=== PATIENT | male | born 1955 | race Caucasian/White ===

== ENCOUNTER 2019-01-13 21:56 | Emergency (ER) | payer MEDICAID, OTHER ==
[~2019-01-13] VITALS: Ht 170.2 cm; Wt 102.1 kg
[2019-01-13 22:12] VITALS: BP 130/70
--- NOTE | 2019-01-13 22:16 | NUR ---
PT AMBULATED TO BED 4, REPORT TO JUSTINA ALBARADO
--- NOTE | 2019-01-13 22:25 | NUR ---
PT TO ED WITH C/O LOWER BACK PAIN. PT DENIES INJURY OR TRAUMA. REPORTING 10/10 PAIN RADIATING DOWN TO BILATERAL LEGS. PT PLACED INTO BED, PENDING MD MORAES.
[2019-01-13] MEDS ORDERED: KETOROLAC 60 MG/2 ML VIAL IM ONE (22:55)
[2019-01-13 23:30] VITALS: BP 124/61
--- NOTE | 2019-01-13 23:30 | NUR ---
Patient discharged with v/s stable. Written and verbal after care instructions given and explained. Patient alert, oriented and verbalized understanding of instructions. Ambulatory with steady gait. All questions addressed prior to discharge. ID band removed. Patient advised to follow up with PMD. Rx of ROBAXIN, MOTRIN given. Patient educated on indication of medication including possible reaction and side effects. Opportunity to ask questions provided and answered.
== END 2019-01-13 23:30 | disposition home or self-care (01) ==
LOC: MED 21:56
DX: M54.42 Lumbago with sciatica, left side (principal); M54.41 Lumbago with sciatica, right side; J45.909 Unspecified asthma, uncomplicated; I10 Essential (primary) hypertension
CPT/HCPCS: 72100; 96372; 99283; J1885

== ENCOUNTER 2019-07-24 21:32 | Emergency (ER) | payer OTHER ==
[~2019-07-24] VITALS: Ht 170.2 cm; Wt 108.9 kg
[2019-07-24 21:35] VITALS: BP 133/68
--- NOTE | 2019-07-24 21:38 | NUR ---
TO LOBBY A/W BED AMBULATORY
--- NOTE | 2019-07-24 22:31 | NUR ---
PT TO ER BED 1
[2019-07-24 22:46] VITALS: BP 133/68
--- NOTE | 2019-07-24 22:46 | NUR ---
64 Y/O MALE PRESENTS TO ED, C/O ACHING LOWER BACK AND LEFT ARM PAIN 03/23. PT STATES PAIN STARTED 2 WEEKS AGO STATES, "I MIGHT HAVE SLEPT WRONG." PT DENIES ANY TINGLING SENSATION ON EXTREMITIES. PT DENIES ANY LOWER EXTREMITY PAIN. PT ABLE TO AMBULATE WITH SLOW STEADY GAIT. LIMITED ROM ON L ARM. BILAT STRONG [employer] STRENGTH. STRONG BILAT RADIAL PULSES. PT VSS. ERMD AWARE. WILL CONTINUE TO MONITOR.
--- NOTE | 2019-07-25 00:38 | NUR ---
PT LEFT WITHOUT BEING SEEN BY DOCTOR. ERMD AWARE.
== END 2019-07-25 00:38 | disposition left against medical advice (07) ==
LOC: MED 21:32
DX: M25.512 Pain in left shoulder (principal); M79.602 Pain in left arm; M54.5 Low back pain; Z53.21 Procedure and treatment not carried out due to patient leaving prior to being seen by health care provider

== ENCOUNTER 2019-09-30 23:42 | Emergency (ER) | payer OTHER ==
[~2019-09-30] VITALS: Ht 170.2 cm; Wt 99.8 kg
[2019-10-01 00:03] VITALS: BP 152/79
--- NOTE | 2019-10-01 00:54 | NUR ---
PT AMBULATED TO BED 9
--- NOTE | 2019-10-01 01:05 | NUR ---
64 Y/O M PRESENTS TO ER FOR HEADACHE, NAUSEA, DRY HEAVING AND HAVING A "WEIRD SENSATION" PT UNABLE TO DESCRIBE FEELINGS. PT SEEN AT [facility] ON Tuesday09/23/19 AND PRESCRIBED RX: METFORMIN HCL 500MG BID LISINOPRIL 10MG ATORVASTATIN 20MG PT C/O SYMPTOMS OF POLYURIA AND POLYDIPSIA. BLOOD SUGAR 325. PT C/O ABDOMINAL PAIN AND BILATERAL LEG CRAMPS. HOB ELEVATED, BED IN LOWEST POSITION, BED RAIL UP X1. WAITING FOR ERMD TO EVALUATE PT. ALLERGIES: NKA MED HX: DM, HTN, HYPERLIPIDEMIA, ASTHMA, AND FATTY LIVER
--- NOTE | 2019-10-01 01:38 | NUR ---
Dr. Thapa examining patient.
[2019-10-01] MEDS ORDERED: NACL 0.9% 1,000 ML IV SCH (02:21)
[2019-10-01] MEDS ORDERED: ONDANSETRON 4 MG/2 ML VIAL IVP ONE (02:25)
[2019-10-01] MEDS ORDERED: KETOROLAC 30 MG/ML VIAL IVP ONE (02:25)
--- NOTE | 2019-10-01 02:25 | NUR ---
PATIENT LEFT THE UNIT.
--- NOTE | 2019-10-01 02:25 | NUR ---
PATIENT ELOPED FROM FACILITY. DISCHARGE INSTRUCTIONS NOT GIVEN TO PATIENT. DR. COLLINS NOTIFIED.
== END 2019-10-01 02:20 | disposition left against medical advice (07) ==
LOC: MED 23:42
DX: E11.65 Type 2 diabetes mellitus with hyperglycemia (principal); R11.2 Nausea with vomiting, unspecified; R05 Cough; J45.909 Unspecified asthma, uncomplicated; I10 Essential (primary) hypertension; E78.5 Hyperlipidemia, unspecified; F17.210 Nicotine dependence, cigarettes, uncomplicated
CPT/HCPCS: 82948; 99282

== ENCOUNTER 2022-07-31 22:31 | Emergency (ER) | payer OTHER ==
[~2022-07-31] VITALS: Ht 172.7 cm; Wt 99.8 kg
[2022-07-31 22:45] VITALS: BP 171/97
--- NOTE | 2022-07-31 22:53 | NUR ---
TO LOBBY FOLLOWING TRIAGE
--- NOTE | 2022-07-31 23:20 | NUR ---
Dr. Granger examining patient.
[2022-07-31] MEDS ORDERED: KETOROLAC 30 MG/ML VIAL IM ONE (23:25)
--- NOTE | 2022-07-31 23:35 | NUR ---
PT TAKEN TO RADIOLOGY
--- NOTE | 2022-07-31 23:57 | NUR ---
PT RETURN FROM RADIOLOGY
[2022-08-01] MEDS ORDERED: ACET-9882 PO (01:58)
[2022-08-01] MEDS ORDERED: NAPR-54 PO (01:58)
--- NOTE | 2022-08-01 02:10 | NUR ---
Patient discharged with v/s stable. Written and verbal after care instructions given and explained. Patient alert, oriented and verbalized understanding of instructions. Ambulatory with steady gait. All questions addressed prior to discharge. ID band removed. Patient advised to follow up with PMD. Rx of Tylenol and Naprosyn given. Patient educated on indication of medication including possible reaction and side effects. Opportunity to ask questions provided and answered.
--- NOTE | 2022-08-01 02:11 | NUR ---
The patient's care was reviewed and supervised by Kristen Hawley RN.
== END 2022-08-01 02:10 | disposition home or self-care (01) ==
LOC: MED 22:31
DX: S39.012A Strain of muscle, fascia and tendon of lower back, initial encounter (principal); V49.88XA Car occupant (driver) (passenger) injured in other specified transport accidents, initial encounter; Y93.89 Activity, other specified; Y92.89 Other specified places as the place of occurrence of the external cause; Y99.8 Other external cause status
CPT/HCPCS: 70450; 71045; 72080; 96372; 99284; J1885

== ENCOUNTER 2023-01-24 23:07 | Emergency (ER) | payer OTHER ==
[~2023-01-24] VITALS: Ht 172.7 cm; Wt 93.1 kg
[~2023-01-24 23:07] MED LIST: ACET-9882 PO; NAPR-54 PO
[2023-01-24 23:20] VITALS: BP 165/90
[2023-01-25 00:37] LABS: BASOPHILS # (AUTO) 0.1 K/uL (0.00-0.22); BASOPHILS % (AUTO) 0.9 % (0.0-2.0); EOSINOPHILS # (AUTO) 0.4 K/uL (0-0.4); EOSINOPHILS % (AUTO) 3.9 % (0.0-4.0); HEMATOCRIT 47.4 % (36-52); LYMPHOCYTES % (AUTO) 28.8 % (20.5-51.1); MEAN CORPUSCULAR HEMOGLOBIN 31 pg (27-31); MEAN CORPUSCULAR HGB CONC 34 g/dL (33-37); MEAN CORPUSCULAR VOLUME 91.3 fL (80-94); MONOCYTES # (AUTO) 0.6 K/uL (0.8-1.0); MONOCYTES % (AUTO) 6.1 % (1.7-9.3); NEUTROPHILS # (AUTO) 6.3 K/uL (1.8-7.7); NEUTROPHILS % (AUTO) 60.3 % (42.2-75.2); PLATELET COUNT (AUTO) 277 K/uL (140-450); RED BLOOD CELL COUNT(AUTO) 5.19 MIL/uL (4.20-6.10); RED CELL DISTRIBUTION WIDTH 13.5 % (11.6-13.7); WHITE BLOOD COUNT (AUTO) 10.5 K/uL (4.8-10.8)
[2023-01-25 00:53] LABS: ALBUMIN 4.1 g/dL (3.4-5.0); ANION GAP 8.1 (8-16); CARBON DIOXIDE 33.4 mmol/L (21-32); CREATININE 1.1 mg/dL (0.6-1.3); POTASSIUM 3.5 mmol/L (3.5-5.1); TOTAL BILIRUBIN 0.6 mg/dL (0.0-1.0)
--- NOTE | 2023-01-25 01:10 | NUR ---
PT TO BED #1
--- NOTE | 2023-01-25 01:25 | NUR ---
Patient received on bed lying comfortably and awake. Alert and oriented x4. No acute distress. No complaints of pain or discomfort. Respirations even and unlabored.
[2023-01-25] MEDS ORDERED: NACL 0.9% 1,000 ML IV ONE (01:40)
[2023-01-25] MEDS ORDERED: METF-346 PO (02:49)
[2023-01-25] MEDS ORDERED: ALBU0.0912 INH (02:49)
[2023-01-25] MEDS ORDERED: LOTC TP (02:49)
[2023-01-25] MEDS ORDERED: AMLO5TAB PO (02:49)
[2023-01-25 03:10] VITALS: BP 157/86
--- NOTE | 2023-01-25 03:10 | NUR ---
Patient discharged with v/s stable. Written and verbal after care instructions given and explained. Patient alert, oriented and verbalized understanding of instructions. Ambulatory with steady gait. All questions addressed prior to discharge. ID band removed. Patient advised to follow up with PMD. Rx of Metformin, Amlodipine, Albuterol, Clotrimazole given. Patient educated on indication of medication including possible reaction and side effects. Opportunity to ask questions provided and answered.
== END 2023-01-25 03:10 | disposition home or self-care (01) ==
LOC: MED 23:07
DX: E11.65 Type 2 diabetes mellitus with hyperglycemia (principal); I10 Essential (primary) hypertension; E86.0 Dehydration; E87.1 Hypo-osmolality and hyponatremia; J45.909 Unspecified asthma, uncomplicated; F17.210 Nicotine dependence, cigarettes, uncomplicated; Z79.899 Other long term (current) drug therapy; Z79.1 Long term (current) use of non-steroidal anti-inflammatories (NSAID)
CPT/HCPCS: 36415; 80053; 85025; 96360; 99283; J7030

== ENCOUNTER 2023-06-20 02:40 | Emergency (ER) | payer OTHER ==
[~2023-06-20] VITALS: Ht 160 cm; Wt 94.3 kg
[~2023-06-20 02:40] MED LIST changes: +ALBU0.0912 INH; +AMLO5TAB PO; +LOTC TP; +METF-346 PO
[2023-06-20 02:50] VITALS: BP 161/94; PULSE 88; RESP 18; TEMP 97.3; O2SAT 96
[2023-06-20 02:57] VITALS: O2SAT 96
[2023-06-20] MEDS ORDERED: ALBU0.0912 INH (03:03)
[2023-06-20] MEDS ORDERED: METF-346 PO (03:03)
[2023-06-20] MEDS ORDERED: AMLO5TAB PO (03:03)
--- NOTE | 2023-06-20 03:14 | NUR ---
Patient discharged with v/s stable. Written and verbal after care instructions given and explained. Patient alert, oriented and verbalized understanding of instructions. Ambulatory with steady gait. All questions addressed prior to discharge. ID band removed. Patient advised to follow up with PMD. Rx of albuterol, amlodipine, metformin given. Patient educated on indication of medication including possible reaction and side effects. Opportunity to ask questions provided and answered.
[2023-06-20] MEDS ORDERED: metFORMIN 500 MG TAB PO SCH (09:00)
[2023-06-20] MEDS ORDERED: amLODIPine 5 MG TAB PO SCH (09:00)
== END 2023-06-20 03:14 | disposition home or self-care (01) ==
LOC: MED 02:40
DX: E11.65 Type 2 diabetes mellitus with hyperglycemia (principal); I10 Essential (primary) hypertension; Z76.0 Encounter for issue of repeat prescription
CPT/HCPCS: 99281

== ENCOUNTER 2024-02-21 00:17 | Emergency (ER) | payer OTHER ==
[~2024-02-21] VITALS: Ht 167.6 cm; Wt 95.3 kg
[2024-02-21 00:27] VITALS: BP 164/90; PULSE 94; RESP 18; TEMP 97.6; O2SAT 98
== END 2024-02-21 03:11 | disposition left against medical advice (07) ==
LOC: MED 00:17
DX: H57.13 Ocular pain, bilateral (principal); Z53.21 Procedure and treatment not carried out due to patient leaving prior to being seen by health care provider
CPT/HCPCS: 99281